=== PATIENT | male | born 1995 | race Caucasian/White ===

== ENCOUNTER 2024-02-09 13:32 | Outpatient (REF) | payer BC, SELFPAY ==
[2024-02-14 15:48] LABS: Appearance Normal; Container Type 50 mL Conical; Grade 2.5 (>=2.5); Head Size Abnormal 0.5 %; Midpiece Defect 13.5 %; Motile/Ejaculate 37.5 x10(6) (>=9.0); Motility 49 % (>=40); Semen Volume 2.5 mL (>=1.5); Sperm/mL 30.6 x10(6) (>=15.0); Strict Morph NL 1.5 % (>=4.0); Study Type Semen; Tail Defect 19.5 %; WBC/mL 1.38 x10(6) (<1.00); pH 7.5 (>=7.2)
== END 2024-02-09 13:33 | disposition home or self-care (01) ==
LOC: LBN 13:32
PROVIDERS: Visit Provider Psychiatry & Neurology Neurology
DX: N46.8 Other male infertility (principal)
CPT/HCPCS: 89240; 89310